=== PATIENT | female | born 1945 | race Caucasian/White ===

== ENCOUNTER → 2016-05-20 | Outpatient (CLI) | payer OTHER | LOC: BMCIMAGING 12:37 | PROVIDERS: ATTEND Internal Medicine | DX: J98.4 Other disorders of lung (principal) ==

== ENCOUNTER → 2016-06-09 | Outpatient (CLI) | payer OTHER | LOC: BMCIMAGING 14:36 | PROVIDERS: ATTEND Internal Medicine | DX: R05 Cough (principal); R91.8 Other nonspecific abnormal finding of lung field; J42 Unspecified chronic bronchitis; Z98.1 Arthrodesis status ==

== ENCOUNTER → 2016-06-18 | Outpatient (CLI) | payer OTHER ==
[~2016-06-18] MED LIST: IOPAMIDOL (ISOVUE-300) 100 ML BTL IV ONE
[2016-06-18 12:34] LABS: CREATININE 0.7 mg/dL (0.6-1.0); GLOMERULAR FILTRATION RATE > 60
== END ==
LOC: FIMAGING 12:00
PROVIDERS: ATTEND Internal Medicine
DX: J43.2 Centrilobular emphysema (principal); R91.1 Solitary pulmonary nodule; K22.9 Disease of esophagus, unspecified; K80.20 Calculus of gallbladder without cholecystitis without obstruction; Z87.891 Personal history of nicotine dependence
CPT/HCPCS: 71260; Q9967

== ENCOUNTER 2016-07-14 11:13 | Emergency (ER) | payer OTHER ==
[2016-07-14 11:25] VITALS: TEMP 97.5; O2SAT 94
--- NOTE | 2016-07-14 13:46 | EDPHY ---
H & P Time Seen by Provider: 07/14/16 12:29 HPI/ROS: CHIEF COMPLAINT: Bilateral posterior rib pain HISTORY OF PRESENT ILLNESS: Patient is a 71-year-old female who presents to the emergency department with bilateral lower back/rib pain. Patient states that she was traveling in [place]. She tripped on a small step and struck her face on counter top. She has significant bruising on her face but this is not her complaint. Since the fall she has complained of bilateral lower flank pain. Her pain is over her ribs. It is worse with movement. Pain is slightly worsened. She has no shortness of breath. No fevers or chills. No leg pain or swelling. REVIEW OF SYSTEMS: My complete review of systems is negative except as mentioned in the HPI. Past Medical/Surgical History: Includes coronary artery disease, acute IL, Prinzmetal's angina, hiatal hernia, diabetes type 2, fatty liver Past surgical history: Includes stent placement, bypass, bilateral knee surgery Social history: The patient is . She does not smoke. Smoking Status: Former smoker Physical Exam: Vitals noted. GENERAL: Well-appearing, in no acute distress, alert. HEENT: Patient has healing bruising on her forehead, bridge of nose and bilateral eyes. No significant tenderness palpation. Eyes normal to inspection , normal pharynx, no signs of dehydration. NECK: No thyromegaly, no lymphadenopathy, supple. RESPIRATORY: Clear to auscultation bilaterally, no rales, rhonchi or wheezing. CVS: Regular rate and rhythm, no rubs, murmurs, or gallops. ABDOMEN: Soft, nontender, nondistended, no organomegaly. BACK: Normal to inspection, no deformity. The patient does have bilateral lower posterior lateral rib tenderness palpation. No crepitus. No visible bruising. SKIN: Normal color, no rash, warm, dry. No pallor. EXTREMITIES: No pedal edema, no calf tenderness, no Homans sign or cords, no joint swelling. NEURO/PSYCH: Alert and oriented x3, normal mood and affect, normal motor sensory exam. No obvious cranial nerve deficit. Constitutional: Initial Vital Signs Temperature (C) 36.4 C 07/14/16 11:20 Heart Rate 71 07/14/16 11:20 Respiratory Rate 20 07/14/16 11:20 Blood Pressure 175/72 H 07/14/16 11:20 O2 Sat (%) 94 07/14/16 11:20 O2 Delivery Mode Room Air Allergies/Adverse Reactions: acetaminophen [From Percocet] Allergy (Severe, Verified 07/14/16 11:20) ALL NARCOTICS SEVERE NAUSEA adhesive tape [Adhesive Tape] Allergy (Severe, Verified 07/14/16 11:20) BENEDICT SKIN azithromycin [From Zithromax Z-Arthur] Allergy (Severe, Verified 07/14/16 11:20) SEVERE MUSCLE PAIN, PEREZ, NAUSEA ciprofloxacin [From Cipro] Allergy (Severe, Verified 07/14/16 11:20) MUSCLE PAIN, PEREZ, NAUSEA ciprofloxacin HCl [From Cipro] Allergy (Severe, Verified 07/14/16 11:20) SEVERE MUSCLE PAIN, PEREZ, NAUSEA oxycodone HCl [From Percocet] Allergy (Severe, Verified 07/14/16 11:20) ALL NARCOTICS SEVERE NAUSEA Penicillins Allergy (Severe, Verified 07/14/16 11:20) SEVERE MUSCLE PAIN, PEREZ, NAUSEA BLACK PEPPER, MARRY Allergy (Intermediate, Uncoded 10/10/14 17:00) GI UPSET DAIRY Allergy (Intermediate, Uncoded 10/10/14 17:00) UPSET STOMACH black pepper Allergy (Uncoded 10/10/14 17:00) marry Allergy (Uncoded 10/10/14 17:00) TOMATO, CITRUS, SPICY,ONION Allergy (Uncoded 10/10/14 17:00) UPSET STOMACH Home Medications: Medication Instructions Recorded Amlodipine Besylate [Norvasc] 5 mg PO DAILY 10/10/14 Aspirin [Aspirin 325 mg (*)] 325 mg PO DAILY 10/10/14 Aspirin [Aspirin 325 mg (*)] 650 mg PO 1500 10/10/14 Atorvastatin Calcium [Lipitor 20 20 mg PO DAILY 10/10/14 mg (*)] Dexlansoprazole [Dexilant] 60 mg PO DAILY 10/10/14 Herbals/Supplements -Info Only 1 ea PO DAILY 10/10/14 Isosorbide Mononitrate [Imdur 30 30 mg PO BIDNITRATE 10/10/14 mg (*)] Levothyroxine [Synthroid 125 mcg 125 mcg PO DAILY06 10/10/14 (*)] Losartan/Hydrochlorothiazide 1 each PO DAILY 10/10/14 [Hyzaar 100-25 Tablet] Metformin HCl [Metformin 1000 mg] 1,000 mg PO BIDMEAL 10/10/14 [place]-3 Fatty Acids [Fish Oil 1000 1,000 mg PO DAILY 10/10/14 mg (*)] PARoxetine HCL [Paxil 20mg (*)] 20 mg PO DAILY 10/10/14 ALPRAZolam [Xanax] 1 mg PO HS #0 tab 10/11/14 Melatonin [Melatonin 3 MG (*)] 3 - 6 mg PO HS #0 tab 10/11/14 Cyclobenzaprine [Flexeril] 10 mg PO TID #15 tab 07/14/16 Medical Decision Making - Diagnostics Imaging Results: Imaging Impressions Thoracic Spine X-Ray 07/14/16 11:47 Impression: 1. Mild compression of T9 since the prior CT study. 2. Stable mild compression superior endplate of L1. ED Course/Re-evaluation: In the emergency department I discussed possible etiologies with the patient. Patient had thoracic spine were ordered from triage. I reviewed these images. Patient does have a small compression fracture T9. I discussed this with the patient. She states this is old. The patient has no tenderness to palpation over L1. There is a small new compression there as well. I added a chest x- ray. I explained this to the patient. I answered all her questions. A chest x-ray: No pneumothorax. No hemothorax. No visible rib fractures. I reviewed the images with Dr. Arauz. I discussed the results with the patient. I answered all her questions. On recheck the patient describes some mild muscle spasm. Because of this she will be given Flexeril. She does not want other pain medication. She was given warnings. She will follow up with the primary care physician. Differential Diagnosis: My differential includes but is not limited to rib fracture, rib contusion, pneumothorax, hemothorax, disc herniation, spinal injury, DVT, PE Departure - Departure Disposition: Home, Routine, Self-Care Clinical Impression: Back pain Qualifiers: Back pain location: low back pain Chronicity: acute Back pain laterality: bilateral Sciatica presence: without sciatica Qualified Code(s): M54.5 - Low back pain Condition: Good Instructions: Back Pain (ED) Additional Instructions: Return with increasing pain, shortness of breath, fever, leg pain, swelling or any other concerns. Referrals: Dinorah Austin MD [Primary Care Provider] - 3-4 days, if not improved Prescriptions: Cyclobenzaprine [Flexeril] 10 mg PO TID #15 tab
[2016-07-14 14:38] VITALS: BP 149/79; PULSE 67; RESP 16
== END 2016-07-14 14:37 | disposition home or self-care (01) ==
DX: S39.92XA Unspecified injury of lower back, initial encounter (principal); I25.10 Atherosclerotic heart disease of native coronary artery without angina pectoris; I25.2 Old myocardial infarction; E11.9 Type 2 diabetes mellitus without complications; Z95.5 Presence of coronary angioplasty implant and graft; Z87.891 Personal history of nicotine dependence; Z79.82 Long term (current) use of aspirin; Z79.84 Long term (current) use of oral hypoglycemic drugs; W01.198A Fall on same level from slipping, tripping and stumbling with subsequent striking against other object, initial encounter

== ENCOUNTER → 2016-12-17 | Outpatient (CLI) | payer OTHER | LOC: BMCIMAGING 16:16 | PROVIDERS: ATTEND Internal Medicine | DX: R05 Cough (principal); J98.9 Respiratory disorder, unspecified ==

== ENCOUNTER → 2017-03-11 | Outpatient (CLI) | payer OTHER | LOC: BMCIMAGING 16:14 | PROVIDERS: ATTEND Internal Medicine | DX: J44.1 Chronic obstructive pulmonary disease with (acute) exacerbation (principal) ==

== ENCOUNTER → 2017-04-27 | Outpatient (CLI) | payer OTHER | LOC: BHFA 11:30 | PROVIDERS: ATTEND Internal Medicine | DX: R06.02 Shortness of breath (principal); R07.9 Chest pain, unspecified | CPT/HCPCS: 78452; 93017; 93306; A9500; J2785 ==

== ENCOUNTER → 2017-06-13 | Outpatient (CLI) | payer OTHER | LOC: BMCIMAGING 14:35 | PROVIDERS: ATTEND Podiatrist Foot & Ankle Surgery | DX: S92.425A Nondisplaced fracture of distal phalanx of left great toe, initial encounter for closed fracture (principal) ==

== ENCOUNTER → 2017-10-31 | Outpatient (CLI) | payer OTHER | LOC: BHFA 03:15 | PROVIDERS: ATTEND Nurse Practitioner Adult Health | DX: I48.91 Unspecified atrial fibrillation (principal); I10 Essential (primary) hypertension ==

== ENCOUNTER → 2017-11-09 | Outpatient (CLI) | payer OTHER | LOC: BMCIMAGING 11:55 | PROVIDERS: ATTEND Podiatrist Foot & Ankle Surgery | DX: M79.672 Pain in left foot (principal) ==

== ENCOUNTER → 2017-11-23 | Outpatient (CLI) | payer OTHER | LOC: FIMAGING 15:49 | PROVIDERS: ATTEND Nurse Practitioner Adult Health | DX: R51 Headache (principal); G31.89 Other specified degenerative diseases of nervous system; I10 Essential (primary) hypertension; I48.91 Unspecified atrial fibrillation ==

== ENCOUNTER → 2017-11-23 | Outpatient (CLI) | payer OTHER | LOC: BHFA 14:15 | PROVIDERS: ATTEND Nurse Practitioner Adult Health | DX: I48.91 Unspecified atrial fibrillation (principal); I10 Essential (primary) hypertension; R60.9 Edema, unspecified; Z95.5 Presence of coronary angioplasty implant and graft; R51 Headache; L03.90 Cellulitis, unspecified ==